=== PATIENT | female | born 1935 | race Caucasian/White ===

== ENCOUNTER 2016-07-31 10:01 | Emergency (ER) | payer BC ==
[2016-07-31 10:04] VITALS: RESP 16
[2016-07-31 11:28] LABS: % IMMATURE GRANULYOCYTES 0.2 % (0.0-1.1); ABSOLUTE IMMATURE GRANULOCYTES 0.01 10^3/uL (0.00-0.10); ADD DIFF? NO; ADD MORPH? NO; ADD SCAN? NO; ATYPICAL LYMPHOCYTE FLAG 10 (0-99); FRAGMENT RBC FLAG 0 (0-99); HEMATOCRIT 42.3 % (38.0-47.0); HEMOGLOBIN 15.1 g/dL (12.6-16.3); LEFT SHIFT FLG 0 (0-99); LIPEMIA HEMOLYSIS FLAG 90 (0-99); MEAN CELL HEMOGLOBIN 33.3 pg (27.9-34.1); MEAN CELL HEMOGLOBIN CONCENTR. 35.7 g/dL (32.4-36.7); MEAN CELL VOLUME 93.4 fL (81.5-99.8); MEAN PLATELET VOLUME 9.9 fL (8.7-11.7); PLATELET CLUMPS FLAG 10 (0-99); PLATELET COUNT 194 10^3/uL (150-400); RED BLOOD CELL COUNT 4.53 10^6/uL (4.18-5.33); RED CELL DISTRIBUTION WIDTH 11.9 % (11.5-15.2)
--- NOTE | 2016-07-31 11:32 | CPEKG ---
Heart Rate: 53 RR Interval: 1132 P-R Interval: 164 QRSD Interval: 100 QT Interval: 436 QTC Interval: 410 P Silvis: 51 QRS Silvis: 17 T Wave Silvis: 61 EKG Severity - ABNORMAL ECG - EKG Impression: SINUS RHYTHM Electronically Signed By: Prashant Garcia 31-Jul-2016 14:30:59
[2016-07-31 11:45] LABS: ANION GAP 10 mEq/L (8-16); CALCIUM 10.1 mg/dL (8.5-10.4); CARBON DIOXIDE 26 mEq/l (22-31); CHLORIDE 97 mEq/L (97-110); CREATININE 0.7 mg/dL (0.6-1.0); GLOMERULAR FILTRATION RATE > 60; GLUCOSE 126 mg/dL (70-100); POTASSIUM 3.7 mEq/L (3.5-5.2); SODIUM 133 mEq/L (134-144)
[2016-07-31] MEDS ORDERED: IOPAMIDOL (ISOVUE-300) 100 ML BTL IV ONE (11:57)
[2016-07-31 13:12] VITALS: BP 182/67; PULSE 53; TEMP 97.9; O2SAT 93
--- NOTE | 2016-07-31 13:31 | EDPHY ---
H & P Stated Complaint: DBL VISION SINCE THIS AM Time Seen by Provider: 07/31/16 10:38 HPI/ROS: CHIEF COMPLAINT: Transient diplopia HISTORY OF PRESENT ILLNESS: The patient presents to the emergency department after an episode of transient diplopia. The patient reportedly developed the symptoms after bending over. She reportedly had a binocular diplopia which lasted 10-15 minutes. The symptoms occurred at high o'clock this morning. She has had no recurrent symptoms since that time. She has no history of stroke or TIA. The patient denies any history of chiropractic manipulation or neck pain. REVIEW OF SYSTEMS: A comprehensive 10 point review of systems is otherwise negative aside from elements mentioned in the history of present illness. Source: Patient Exam Limitations: No limitations - Personal History Current Tetanus/Diphtheria Vaccine: Yes Current Tetanus Diphtheria and Acellular Pertussis (TDAP): Yes Tetanus Vaccine Date: 2007 - Medical/Surgical History Hx Asthma: No Hx Chronic Respiratory Disease: No Hx Diabetes: No Hx Cardiac Disease: Yes Hx Renal Disease: No Hx Cirrhosis: No Hx Alcoholism: No Hx HIV/AIDS: No Hx Splenectomy or Spleen Trauma: No Other PMH: L LUMPECTOMY AND SN REMVL, HTN, HLD, HYPOTHYROID. RESTRICTED ARM - Social History Smoking Status: Former smoker - Physical Exam Exam: General Appearance: Alert, no distress Eyes: Pupils equal and round no pallor or injection ENT, Mouth: Mucous membranes moist Respiratory: There are no retractions, lungs are clear to auscultation Cardiovascular: Regular rate and rhythm Gastrointestinal: Abdomen is soft and nontender, no masses, bowel sounds normal Neurological: A&O, normal motor function, normal sensory exam, normal cranial nerves Skin: Warm and dry, no rashes Musculoskeletal: Neck is supple nontender Extremities: symmetrical, full range of motion Constitutional: Initial Vital Signs Temperature (C) 36.3 C 07/31/16 10:03 Heart Rate 60 07/31/16 10:03 Respiratory Rate 16 07/31/16 10:03 Blood Pressure 204/77 H 07/31/16 10:03 O2 Sat (%) 93 07/31/16 10:03 O2 Delivery Mode Room Air Allergies/Adverse Reactions: epinephrine Allergy (Intermediate, Verified 08/08/11 08:27) "heart races" latex [Latex] Allergy (Mild, Verified 08/07/11 15:09) Itchy skin Home Medications: Medication Instructions Recorded Hannahr 07/31/16 Bystolic 07/31/16 Clonidine 07/31/16 Lipitor 07/31/16 Risedronate Sodium 07/31/16 Synthroid 07/31/16 Medical Decision Making - Diagnostics EKG Interpretation: EKG: Complete interpretation has been separately recorded in the [facility] archive. Summary impression: Sinus rhythm Imaging: CT head without contrast: Images reviewed by myself, negative for intracranial hemorrhage. Study results also reviewed with radiologist Dr. Arango. CT angiogram head neck: Negative for dissection, stenosis or vertebrobasilar insufficiency. Study results reported to me by Dr. Tonio Arango. ED Course/Re-evaluation: The patient presents to the ED after an episode of transient diplopia precipitated by positional change. The patient has no evidence of vertebral basilar insufficiency on her angiographic studies. Her neurologic examination is normal. She is in a sinus rhythm with stable vital signs. I did curbside Dr. Mcknight from Neurology who would be happy to see the patient in follow-up. She will be started on 81 mg aspirin and encouraged to increase her fluid intake in the event that this was a TIA versus transient episode of hypoperfusion. The patient has been instructed she should return to the ED immediately for any recurrent neurologic symptoms or other concerns. Re-evaluation at 1:38 p.m.: The patient is resting comfortably in the room, neurologic examination remains normal. Differential Diagnosis: Differential diagnosis considered includes labyrinthitis, vertebral basilar insufficiency, vertebral dissection, stroke, TIA, hypoperfusion, metabolic abnormality - Data Points Laboratory Results: Laboratory Results 07/31/16 11:05 07/31/16 11:05 07/31/16 07/31/16 11:05 11:05 WBC 4.14 10^3/uL 10^3/uL (3.80-9.50) RBC 4.53 10^6/uL 10^6/uL (4.18-5.33) Hgb 15.1 g/dL g/dL (12.6-16.3) Hct 42.3 % % (38.0-47.0) MCV 93.4 fL fL (81.5-99.8) MCH 33.3 pg pg (27.9-34.1) MCHC 35.7 g/dL g/dL (32.4-36.7) RDW 11.9 % % (11.5-15.2) Plt Count 194 10^3/uL 10^3/uL (150-400) MPV 9.9 fL fL (8.7-11.7) Neut % (Auto) 64.3 % % (39.3-74.2) Lymph % (Auto) 23.2 % % (15.0-45.0) [place] % (Auto) 9.7 % % (4.5-13.0) Eos % (Auto) 1.9 % % (0.6-7.6) Baso % (Auto) 0.7 % % (0.3-1.7) Nucleat RBC Rel Count 0.0 % % (0.0-0.2) Absolute Neuts (auto) 2.66 10^3/uL 10^3/uL (1.70-6.50) Absolute Lymphs (auto) 0.96 10^3/uL L 10^3/uL (1.00-3.00) Absolute Monos (auto) 0.40 10^3/uL 10^3/uL (0.30-0.80) Absolute Eos (auto) 0.08 10^3/uL 10^3/uL (0.03-0.40) Absolute Basos (auto) 0.03 10^3/uL 10^3/uL (0.02-0.10) Absolute Nucleated RBC 0.00 10^3/uL 10^3/uL (0-0.01) Immature Gran % 0.2 % % (0.0-1.1) Immature Gran # 0.01 10^3/uL 10^3/uL (0.00-0.10) Sodium 133 mEq/L L mEq/L (134-144) Potassium 3.7 mEq/L mEq/L (3.5-5.2) Chloride 97 mEq/L mEq/L (97-110) Carbon Dioxide 26 mEq/l mEq/l (22-31) Anion Gap 10 mEq/L mEq/L (8-16) BUN 14 mg/dL mg/dL (7-23) Creatinine 0.7 mg/dL mg/dL (0.6-1.0) Estimated GFR > 60 Glucose 126 mg/dL H mg/dL (70-100) Calcium 10.1 mg/dL mg/dL (8.5-10.4) Departure - Departure Disposition: Home, Routine, Self-Care Clinical Impression: Diplopia Condition: Good Instructions: Blurred Vision (ED) Additional Instructions: 1. Please take an 81 mg aspirin daily. 2. Please follow up with a neurologist you have been referred to. 3. Please increase your fluid intake to at least 64 oz a day as dehydration may have contributed to your symptoms today. 4. Please return to the ED for severe headache, recurrent neurologic symptoms or other concerns. Referrals: Jones Brito MD [Primary Care Provider] - As per Instructions Jovani Mcknight MD [Medical Doctor] - As per Instructions
== END 2016-07-31 13:54 | disposition home or self-care (01) ==
DX: H53.2 Diplopia (principal); I10 Essential (primary) hypertension; Z87.891 Personal history of nicotine dependence; Z91.040 Latex allergy status
CPT/HCPCS: Q9967

== ENCOUNTER → 2016-09-03 | Outpatient (CLI) | payer BC | LOC: BMCIMAGING 10:14 | DX: Z12.31 Encounter for screening mammogram for malignant neoplasm of breast (principal); Z85.3 Personal history of malignant neoplasm of breast | CPT/HCPCS: G0202 ==

== ENCOUNTER 2017-10-14 12:49 | Day surgery (SDC) | payer BC ==
[2017-10-14] MEDS ORDERED: LR 1,000 ML IV ONE (13:07)
[2017-10-14] MEDS ORDERED: LIDOCAINE 1% 2 ML INJ ID PRN (13:07)
[2017-10-14] MEDS ORDERED: PROPOFOL/EMULSION 500 MG/50 ML BOTTLE IV ONE ×2 (14:05→14:47)
[2017-10-14] MEDS ORDERED: LIDOCAINE 2% 5 ML SDV ONE (14:07)
[2017-10-14] MEDS ORDERED: ALBUTEROL 3 ML DEYVIAL IH PRN (14:08)
[2017-10-14] MEDS ORDERED: NALOXONE HCL 0.4 MG/ML INJ IVP PRN (14:08)
[2017-10-14] MEDS ORDERED: ONDANSETRON 4 MG/2 ML VIAL IVP PRN (14:08)
--- NOTE | 2017-10-14 14:09 | PDANEPAE ---
ANE History of Present Illness Colonoscopy ANE Past Medical History - Cardiovascular History Hx Hypertension: Yes Hx Arrhythmias: No Hx Chest Pain: No Hx Coronary Artery / Peripheral Vascular Disease: No Hx CHF / Valvular Disease: No Hx Palpitations: No - Pulmonary History Hx COPD: No Hx Asthma/Reactive Airway Disease: No Hx Recent Upper Respiratory Infection: No Hx Oxygen in Use at Home: No Hx Sleep Apnea: No Sleep Apnea Screening Result - Last Documented: Negative - Neurologic History Hx Cerebrovascular Accident: No Hx Seizures: No Hx Dementia: No - Endocrine History Hx Diabetes: No - Renal History Hx Renal Disorders: No - Liver History Hx Hepatic Disorders: No - Neurological & Psychiatric Hx Hx Neurological and Psychiatric Disorders: Yes Neurological / Psychiatric History Comment: ocassional bilat hand numbness. depression,anxiety - Cancer History Hx Cancer: Yes Cancer History Comment: breast - Congenital Disorder History Hx Congenital Disorders: No - GI History Hx Gastrointestinal Disorders: Yes Gastrointestinal History Comment: polyp cauterized, this is follow-up visit - Other Health History Other Health History: none - Chronic Pain History Chronic Pain: No - Surgical History Prior Surgeries: L lumpectomy with sn remvl,. Restricted extremiyt on L s/p radiation, thyroidectomy,bih repair ANE Review of Systems Review of Systems: - Exercise capacity METS (RN): 4 METS ANE Patient History - Allergies Allergies/Adverse Reactions: epinephrine Allergy (Intermediate, Verified 09/26/17 10:32) "heart races" latex [Latex] Allergy (Mild, Verified 09/26/17 10:32) Itchy skin - Home Medications Home Medications: Bystolic 07/31/16 [Last Taken 10/13/17] Clonidine 07/31/16 [Last Taken 10/13/17] Lipitor 07/31/16 [Last Taken 10/13/17] Risedronate Sodium 07/31/16 [Last Taken 10/08/17] Synthroid 07/31/16 [Last Taken 10/13/17] Benicar Hct 40-25 mg Tablet 09/26/17 [Last Taken 10/13/17] - NPO status NPO Since - Liquids (Date): 10/14/17 NPO Since - Liquids (Time): 05:45 NPO Since - Solids (Date): 10/13/17 NPO Since - Solids (Time): 09:00 - Smoking Hx Smoking Status: Former smoker - Family Anes Hx Family Hx Anesthesia Complications: none ANE Labs/Vital Signs - Vital Signs Blood Pressure: 189/63 Heart Rate: 57 Respiratory Rate: 16 O2 Sat (%): 92 Height: 160.02 cm Weight: 65.771 kg ANE Physical Exam - Airway Neck exam: FROM Mallampati Score: Class 2 - Pulmonary Pulmonary: clear to auscultation - Cardiovascular Cardiovascular: regular rate and rhythym - ASA Status ASA Status: II ANE Anesthesia Plan Anesthesia Plan: GA with mask
--- NOTE | 2017-10-14 15:05 | POSTANESTH ---
Post Anesthetic Evaluation Cardiovascular Status: Normal, Stable Respiratory Status: Normal, Stable Level of Consciousness/Mental Status: Mildly Sleepy, Arousable Pain Control: Adequate, Prn Tx Ordered Nausea/Vomiting Control: Adequate, Prn Tx Ordered
--- NOTE | 2017-10-14 15:22 | GIREPORT ---
[facility] Surgical Services - Endoscopy Department Patient Name: Desirae Blackburn Procedure Date: 10/14/2017 2:02 PM Patient Type: Outpatient Attending MD/ ER Physician: Jose J Drummond MD Procedure: Colonoscopy Indications: High risk colon cancer surveillance: Personal history of colonic polyps Patient Profile: 82 year old female with a history of a complex IC valve polyp presents for EMR. Providers: Jose J Drummond MD Medicines: Monitored Anesthesia Care Complications: No immediate complications. Estimated blood loss: Minimal. Description of Procedure: After obtaining informed consent, the scope was passed under direct vis ion. Throughout the procedure, the patient's blood pressure, pulse, and oxyg en saturations were monitored continuously. The was introduced through the anus and advanced to the cecum, identified by appendiceal orifice and ileoce leah valve. The colonoscopy was performed without difficulty. The patient tolerated the procedure well. The quality of the bowel preparation was good. Findings: The perianal and digital rectal examinations were normal. Pertinent negatives include no palpable rectal lesions. Diverticula were found in the sigmoid colon. A 20 mm polyp was found in the ileocecal valve. The polyp was carpet-li ke. The polyp was removed with a saline injection-lift technique using a ho t snare. The polyp was removed with a piecemeal technique using a hot sna re. Resection and retrieval were complete. A 10 mm polyp was found in the appendiceal orifice. The polyp was sessi le. The polyp was removed with a hot snare. Resection and retrieval were complete. To prevent bleeding post-intervention, three hemostatic clips were successfully placed. Estimated Blood Loss: Estimated blood loss was minimal. Post Op Diagnosis: - Diverticulosis in the sigmoid colon. - One 20 mm polyp on the ileocecal valve, removed using injection-lift and a hot snare and removed piecemeal using a hot snare. Resected and retriev ed. APC was applied on the edges. Successful EMR performed. - One 10 mm polyp at the appendiceal orifice, removed with a hot snare. Resected and retrieved. Clips were placed. Recommendation: - Discharge patient to home (with escort). - Resume previous diet. - Continue present medications. - Repeat colonoscopy in 3 months for surveillance after piecemeal polypectomy. - Thank you for allowing me to participate in the care of your patient. Attending Participation: I personally performed the entire procedure. Jose J Drummond MD Jose J Drummond MD 10/14/2017 3:21:40 PM This report has been signed electronicallyJose J Drummond MD Number of Addenda: 0 Note Initiated On: 10/14/2017 2:02 PM Total Procedure Duration Time 0 hours 43 minutes 42 seconds [email or web address]
--- NOTE | 2017-10-14 15:46 | PDGENHP ---
History & Physical Chief Complaint: phx of polyps History of Present Illness: 82 year old presents for EMR of complex cecal polyp Pertinent Past, Social, Family History: PMHx: HTN. PSughx: lumpectomy Relevant Physical Exam: HEENT: Anicteric. Cv: RRR +s1s2. lungs: CTAB. No w/r/ r. Abd: soft, nt Cardiorespiratory Assessment: ASA 2
[2017-10-14] MEDS ORDERED: INDOMETHACIN 50 MG SUPP PR PRN (15:54)
[2017-10-14] MEDS ORDERED: NS 500 ML IV SCH (16:00)
[2017-10-14 16:37] VITALS: BP 194/74
== END 2017-10-14 16:50 | disposition home or self-care (01) ==
LOC: FSGY 12:49
PROVIDERS: ATTEND Internal Medicine Gastroenterology
PROC: 0DBH8ZZ Excision of Cecum, Via Natural or Artificial Opening Endoscopic (ICD-10-PCS; principal; 2017-10-14 14:30)
DX: D12.0 Benign neoplasm of cecum (principal); I10 Essential (primary) hypertension; K57.32 Diverticulitis of large intestine without perforation or abscess without bleeding
CPT/HCPCS: J2704

== ENCOUNTER → 2018-04-17 | Outpatient (CLI) | payer BC | LOC: FIMAGING 14:40 | PROVIDERS: ATTEND Internal Medicine Hematology & Oncology | DX: Z12.31 Encounter for screening mammogram for malignant neoplasm of breast (principal); Z85.3 Personal history of malignant neoplasm of breast ==

== ENCOUNTER 2018-06-05 16:42 | Emergency (ER) | payer OTHER, BC ==
[2018-06-05 17:22] LABS: PLATELET COUNT 219 10^3/uL (150-400)
--- NOTE | 2018-06-05 17:23 | EDPHY ---
HPI/HX/ROS/PE/MDM Narrative: CLINICAL IMPRESSION: Premature atrial contractions, palpitations, elevated blood pressure with history of hypertension ASSESSMENT/PLAN: This is an 83-year-old female with past medical history of hypertension, hyperlipidemia, hypothyroidism, and situational anxiety who presents to the emergency department from urgent care for evaluation of palpitations which she has noticed since today. On arrival patient is significantly hypertensive at 202/120 to but without headache, dizziness, vertigo, chest pain or shortness of breath. She admits she has not taken her evening hypertensive medications. EKG shows PACs, normal sinus rhythm, no acute ST or T-wave changes, was reviewed with Dr. Garcia. Troponin negative, remainder of lab work reassuring with no evidence of electrolyte imbalance, anemia, leukocytosis, or renal insufficiency. Patient had normal thyroid studies 2 weeks ago. Chest x-ray shows a cardiomegaly with no evidence of effusion or failure. She has no clinical signs to suggest CHF. She has no focal neurological deficits. Repeat BP is 202/81. Patient prefers to go home and take her blood pressure medications at home although I did offer to give her medications here. ED attending is aware patient's BP and comfortable with discharge. Patient encouraged to follow up with Cardiology as an outpatient for possible Holter monitor and echocardiogram. I also recommended PCP follow-up. Low threshold for return to ED sooner as outlined and discharge papers and person. All questions answered. DIFFERENTIAL DX: Differential diagnosis includes but not limited to myocardial ischemia, palpitations, PACs, PVCs, structural heart abnormality, pulmonary embolus, chest wall pain, pleural inflammation, musculoskeletal chest wall pain, aortic aneurysm, and pulmonary infectious causes. ED PROCEDURES: See lab and/or imaging results below ED COURSE: 5:20 p.m.: EKG read interpreted by Dr. Garcia consistent with PACs, normal sinus rhythm otherwise. POC troponin negative. Remainder of lab work and chest x-ray pending. 6:00 p.m.: Patient reassessed, lab, EKG and chest x-ray results reviewed. She continues to be asymptomatic. BP now 202/81. She has not taken her nighttime medications yet. She is comfortable with discharge home and Cardiology follow- up as an outpatient. Low threshold for return to ED sooner as outlined and discharge papers and person. All questions addressed. Case discussed with Dr. Garcia, who is aware patient's BP. CHIEF COMPLAINT: Palpitations sent from urgent care HPI: This is an 83-year-old female with past medical history of hypothyroidism, hypertension, and hyperlipidemia who presents to the emergency department from urgent care today with complaints of palpitations. Patient states that she"can just feel her heart". She states it is feeling like it is beating harder and faster than normal. She has been under a increased amount of stress over the last couple years. She has not been sleeping well. She denies excessive caffeine intake and only drinks alcohol in the form of wine intermittently. She does not smoke cigarettes. She did have a recent adjustment to her hypertension medications by her primary care last week including addition of clonidine at night, increasing her dose of Bystolic from 20 mg to 30 mg and then 40 mg. She also decreased her diuretic from 25 mg to 12.5 mg. She has not taken her Bystolic or clonidine this evening. She did take all of her morning medications. She had normal thyroid studies approximately 2 weeks ago. She has no complaints of chest pain, shortness of breath, recent URI cough or illness, travel outside the [place] long air or car travel, or recent surgery. She has no known first-degree relative with cardiovascular disease. She has seen Dr. Mclaughlin's office in the past for her hypertension which is now primarily managed by her primary care provider. She admits that she has anxiety especially associated with physician offices and hospitals but does not take regular medication for this. She has never been diagnosed with atrial fibrillation and has never had a prior RI. No complaints of headache, dizziness , lightheadedness, vertigo, vision change, hearing change. PAST MEDICAL HISTORY: Hypothyroidism, hypertension, hyperlipidemia, situational anxiety See nurse/triage notes for additional history if applicable Pertinent Past Surgical History: Prior orthopedic surgeries Family History: No first-degree family relative with reported cardiovascular disease Social History: Nonsmoker, , lives with her , drinks wine socially. REVIEW OF SYSTEMS: All other systems negative Constitutional: No fever, no chills, appetite change. Eyes: No discharge, vision change ENT: No sore throat, congestion, ear pain. Cardiovascular: No chest pain, positive for palpitations. Respiratory: No cough, no shortness of breath. Gastrointestinal: No abdominal pain, no vomiting, diarrhea. Genitourinary: No hematuria, dysuria, flank pain, pelvic pain Musculoskeletal: No back pain, joint swelling, joint pain, myalgias. Skin: No rashes, color change. Neurological: No headache, dizziness, weakness. PHYSICAL EXAM: General Appearance: Alert, oriented, appropriate, cooperative, NAD, well hydrated, non-toxic appearing, significantly hypertensive at 208/122, no tachycardia no hypoxia. HEENT: TMs are clear bilaterally no perforation or FB, no injection, no evidence of serous or mucopurulent otitis. Oropharynx clear is no erythema or exudates, no tonsillar hypertrophy or asymmetry. Dentition without abnormality. Eyes: PERRLA, no acute vision change, nystagmus, swelling, discharge, pain or photosensitivity. Conjunctiva pink, no pallor or injection Neck: Supple, nontender, no lymphadenopathy, no midline pain, FROM, no meningismus. Respiratory: There are no retractions, lungs are clear to auscultation. Cardiac: Regular rate , intermittent irregular rhythm consistent with PAc's, no murmurs or gallops. Gastrointestinal: Abdomen is soft, nontender, bowel sounds normal, no masses/ hernia, no rigidity, guarding or focal peritoneal findings. Neurological: Alert and oriented x 3, CN 2-12 grossly intact, normal gait no ataxia, DTR's intact, normal sensation and strength Skin: Warm, dry, no rashes, no nodules on palpation. Musculoskeletal: Extremities are symmetrical, full range of motion, no tenderness, deformity, swelling, or erythema. No asymmetric calf tenderness Psychiatric: Patient is oriented X 3, there is no agitation. MEDICAL DECISION MAKING: Patient was seen independently. Secondary supervising physician at time of evaluation was Dr. Garcia. Diagnosis: Palpitations, premature atrial contractions . New, requires workup Summary: See Assessment and Plan for summary of ED visit Clinical lab tests: ordered / reviewed. Independent visualization of images, tracing, or specimens: Yes. Decision to obtain medical records or history from someone other than the patient: Urgent care Review / Summarize previous medical records: None available Discussed patient with another provider: Dr. Garcia Patient Progress: Stable. (Frederic Farah) MDM: EKG: Complete interpretation has been separately recorded in the [facility] archive. Summary impression: Sinus rhythm, rate 66 PHYSICIAN DOCUMENTATION: The patient was evaluated and managed by the Physician Inventory Audit Clerk. My co- signature indicates that I have reviewed this chart and I agree with the findings and plan of care as documented. I am the secondary supervising physician. (Prashant Gracia) - Data Points Imaging Results: Imaging Impressions Chest X-Ray 06/05/18 17:14 Impression: 1. Airways disease and left basilar atelectasis. 2. Cardiomegaly. No failure or effusion. Laboratory Results: Laboratory Results 06/05/18 16:59 06/05/18 16:59 06/05/18 06/05/18 06/05/18 16:59 16:59 16:58 WBC 7.69 10^3/uL 10^3/uL (3.80-9.50) RBC 4.71 10^6/uL 10^6/uL (4.18-5.33) Hgb 15.7 g/dL g/dL (12.6-16.3) Hct 45.1 % % (38.0-47.0) MCV 95.8 fL fL (81.5-99.8) MCH 33.3 pg pg (27.9-34.1) MCHC 34.8 g/dL g/dL (32.4-36.7) RDW 12.6 % % (11.5-15.2) Plt Count 219 10^3/uL 10^3/uL (150-400) MPV 10.1 fL fL (8.7-11.7) Neut % (Auto) 66.3 % % (39.3-74.2) Lymph % (Auto) 18.3 % % (15.0-45.0) Traill % (Auto) 10.9 % % (4.5-13.0) Eos % (Auto) 3.5 % % (0.6-7.6) Baso % (Auto) 0.7 % % (0.3-1.7) Nucleat RBC Rel Count 0.0 % % (0.0-0.2) Absolute Neuts (auto) 5.10 10^3/uL 10^3/uL (1.70-6.50) Absolute Lymphs (auto) 1.41 10^3/uL 10^3/uL (1.00-3.00) Absolute Monos (auto) 0.84 10^3/uL H 10^3/uL (0.30-0.80) Absolute Eos (auto) 0.27 10^3/uL 10^3/uL (0.03-0.40) Absolute Basos (auto) 0.05 10^3/uL 10^3/uL (0.02-0.10) Absolute Nucleated RBC 0.00 10^3/uL 10^3/uL (0-0.01) Immature Gran % 0.3 % % (0.0-1.1) Immature Gran # 0.02 10^3/uL 10^3/uL (0.00-0.10) Sodium 132 mEq/L L mEq/L (135-145) Potassium 3.6 mEq/L mEq/L (3.5-5.2) Chloride 99 mEq/L mEq/L (97-110) Carbon Dioxide 23 mEq/l mEq/l (22-31) Anion Gap 10 mEq/L mEq/L (6-14) BUN 18 mg/dL mg/dL (7-23) Creatinine 0.7 mg/dL mg/dL (0.6-1.0) Estimated GFR > 60 Glucose 84 mg/dL mg/dL (70-100) Calcium 9.9 mg/dL mg/dL (8.5-10.4) POC Troponin I 0.02 ng/mL ng/mL (0.00-0.08) Point of Care Test Results: Chemistry 06/05/18 16:58 POC Troponin I 0.02 ng/mL ng/mL (0.00-0.08) General Time Seen by Provider: 06/05/18 16:58 Initial Vital Signs: Initial Vital Signs Temperature (C) 36.5 C 12/27/18 16:52 Heart Rate 61 06/05/18 16:52 Respiratory Rate 18 06/05/18 16:52 Blood Pressure 208/122 H 06/05/18 16:52 O2 Sat (%) 93 06/05/18 16:52 O2 Delivery Mode Room Air Allergies/Adverse Reactions: epinephrine Allergy (Intermediate, Verified 06/05/18 16:48) "heart races" latex [Latex] Allergy (Mild, Verified 06/05/18 16:48) Itchy skin Home Medications: Medication Instructions Recorded Bystolic 07/31/16 Clonidine 07/31/16 Lipitor 07/31/16 Risedronate Sodium 07/31/16 Synthroid 07/31/16 Losartan Potassium 06/05/18 Departure - Departure Disposition: Home, Routine, Self-Care Clinical Impression: Premature atrial contractions, Palpitations, Elevated blood pressure reading with diagnosis of hypertension Condition: Good Instructions: Heart Palpitations (ED) Additional Instructions: DISCHARGE INSTRUCTIONS FROM YOUR DOCTOR Thank you for visiting our emergency department today. Please keep in mind that discharge from the emergency department does not mean that there is nothing wrong - it simply means that we have not identified an emergency condition that requires further evaluation or treatment in the hospital. You should always plan to follow up with primary care for re-evaluation of your condition in the next 2-3 days. If you have been referred to a specialist, please call as soon as possible (today or tomorrow) to schedule your follow up appointment at the appropriate time. YOUR EKG TONIGHT SHOWED THAT YOU ARE EXPERIENCING PREMATURE ATRIAL CONTRACTIONS. CARDIAC ENZYMES AND LAB WORK WAS OTHERWISE REASSURING AND CHEST X -RAY WAS NORMAL. HER BLOOD PRESSURE WAS ELEVATED BUT THIS MAY BE DUE TO THE FACT THAT YOU HAVE NOT TAKEN HER NIGHTTIME MEDICATIONS AND WE RECOMMEND THAT YOU HAVE YOUR BLOOD PRESSURE CHECKED ROUTINELY TO ENSURE ADEQUATE BLOOD PRESSURE CONTROL. WE STRONGLY RECOMMEND THAT YOU FOLLOW UP WITH A [facility] DELIVERER AND INSTALLER FOR POSSIBLE HOLTER MONITOR AND ECHOCARDIOGRAM. A REFERRAL WAS GIVEN TO YOU. PLEASE CALL FOR AN APPOINTMENT. PLEASE OF THE WOUND EMERGENCY DEPARTMENT THE PATIENT. PLEASE MONITOR SYMPTOMS CLOSELY AT HOME. AVOID CAFFEINATED BEVERAGES AND ENERGY DRINKS, TRIED TO REDUCE STRESS, GET PLENTY OF REST, LIMIT ALCOHOL INTAKE. FOLLOW UP WITH HER PRIMARY CARE DOCTOR IN 1-2 DAYS. RETURN TO THE EMERGENCY DEPARTMENT SOONER FOR CHEST PAIN, SHORTNESS OF BREATH, SYNCOPE, HEADACHE, DIZZINESS, VERTIGO, VOMITING, SEIZURES, OR ANY OTHER CONCERNS. People present with illnesses and injuries in different ways, and it is always possible that we have missed something. You may always return for re-evaluation if symptoms worsen or if they are not improving or if you develop new/different symptoms. Again, thank you for choosing our emergency department. We hope that you feel better. Referrals: Jones Brito MD [Primary Care Provider] - As per Instructions Yasmani Sherman MD [Medical Doctor] - 1-2 days without fail
--- NOTE | 2018-06-05 17:55 | CPEKG ---
Test Reason : OPEN Blood Pressure : / mmHG Vent. Rate : 066 BPM Atrial Rate : 068 BPM P-R Int : 167 ms QRS Dur : 101 ms QT Int : 403 ms P-R-T Axes : 023 -03 040 degrees QTc Int : 423 ms Normal sinus rhythm premature atrial complexes Confirmed by Prashant Garcia ([id number]) on 06/05/2018 5:54:56 PM Referred By: Confirmed By:Prashant Garcia
[2018-06-05 18:03] VITALS: BP 202/81
== END 2018-06-05 18:15 | disposition home or self-care (01) ==
DX: I49.1 Atrial premature depolarization (principal); I10 Essential (primary) hypertension; E78.5 Hyperlipidemia, unspecified; E03.9 Hypothyroidism, unspecified
CPT/HCPCS: 84484-PO

== ENCOUNTER → 2018-06-18 | Outpatient (CLI) | payer OTHER, BC ==
[~2018-06-18] MED LIST: IOPAMIDOL (ISOVUE 370) 100 ML BTL IV ONE
== END ==
LOC: FIMAGING 14:54
PROVIDERS: ATTEND Internal Medicine Cardiovascular Disease
DX: I70.1 Atherosclerosis of renal artery (principal); I10 Essential (primary) hypertension
CPT/HCPCS: 74175; Q9967